=== PATIENT | female | born 1940 | race Caucasian/White ===

== ENCOUNTER → 2016-10-24 | Outpatient (CLI) | payer MEDICARE, OTHER ==
[~2016-10-24] MED LIST: ACETAMINOPHEN C PO; ACETAMINOPHN-12.5 ML; ALL DAY ALLERGY10 M3 PO; AMBIEN10 MG PO; ANTI-DIARRHEAL2 M1 PO; APAP325 M1 PO; BACTRIM DS TABL1 TA1 PO; CAPOZIDE PO; CARBIDOPA-LEVO1 TAB PO; CIPRO PO; COUMADIN PO; DESYREL50 MG PO; DETROL; DICLOFENAC; DICLOFENAC SODI50 MG PO; DITROPAN PO; DITROPAN5 MG PO; EXELON1 EACH TD; FERRO-TIME325 MG PO; FLEXERIL PO; FLEXERIL10 MG PO; HYDROCHLOROTH12.5 M1 PO; HYDROCHLOROTHIA25 MG PO; HYDROCODON-ACE1 EAC7 PO; HYDROCODON-ACE1 EAC9 PO; K-DUR10 MEQ PO; KEFLEX500 M1 PO; LASIX PO; LEVOTHROID50 MCG PO; LEVOTHYROXINE50 MCG PO; LISINOPRIL PO; LISINOPRIL10 MG PO; LITHIUM PO; LONOX PO; LOPRESSOR PO; LORTAB 7.5-5001 TAB PO; LORTAB 7.51 TAB PO; LOVENOX SUBQ; MAXZIDE 75/50 T1 TAB; MULTI-DAY PLUS1 EACH PO; NAPROXEN PO; OMEPRAZOLE40 M1 PO; ONDANSETRON HCL4 M1 PO; PATIENT'S PHARMACY; PERCOCET 5-3251 TAB PO; PERCOCET PO; POTASSIUM CHL PO; PRAMIPEXOLE DI0.5 MG PO; PREMARIN; PREMARIN PO; PRINIVIL10 MG PO; PYRIDIUM PO; QUINAM; REQUIP1 MG PO; SIMVASTATIN40 MG PO; SINEMET CR 21 TAB.SA PO; SINEMET CR1 TAB 25/1 PO; SINEMET-25/1001 TAB PO; SULFATRIM 800-120 ML PO; SYNTHROID PO; SYNTHROID0.05 MG PO; SYNTHROID0.1 MG PO; TAGAMET PO; TOPROL XL; TYLENOL #3 PO; VESICARE5 MG PO; ZOLOFT PO; ZOLOFT100 MG PO; ZOLPIDEM TARTRAT5 MG PO; ZYRTEC10 M1 PO; ZYRTEC10 M2 PO
--- NOTE | ~2016-10-24 | US24 ---
[facility] A Service of [facility] RADIOLOGY TEXT RESULTS PATIENT: MAHIN MO LOCATION: [facility] : 40 UNIT #: [id number] AGE: [address]: Ben Suggs MD SEX: F ORDER DR: [id number] [facility] [address] [place], [place] [address] [id number] O MR#: [id number] Acc #: [id number] NAME: MAHIN MO : 1940 SEX: F STUDY DATE/TIME: 10/24/2016 15:31 UNIT: CGUS ROOM: STUDY DESCRIPTION: US Breast Unilateral Attending Physician: Ben Suggs M.D. Ordering Physician: Ben Suggs M.D. Primary Care Physician: Ben Suggs M.D. MEDICAL IMAGING REPORT This report is preliminary unless electronic signature is present EXAM Right breast ultrasound, 10/24/2016 INDICATION Followup complex cystic area right breast at 8 o'clock. Comparison study is 05/31/2016. FINDINGS Ultrasound of the 8 o'clock region 13 cm from the nipple again shows a cluster of small cysts measuring about 7 mm in total. This corresponds to the nodule inches nipple again shows a cluster of small cysts measuring about 7 mm in total. This corresponds with the nodule seen on mammography. IMPRESSION No change in cluster of cysts corresponding with the mammographic nodule. I think this is a benign finding and I would recommend screening mammogram in May 2017 of both breasts. BIRADS: 2 Benign finding. Dictated by... Sumit Dougherty M.D. THIS IS AN ELECTRONICALLY VERIFIED REPORT Sumit Dougherty M.D. at 10/25/2016 7:13 AM JAMMIE/ravi TD: 10/25/2016 03:37 JOB #: [id number] [facility] A Service of [facility] RADIOLOGY TEXT RESULTS PATIENT: MAHIN MO LOCATION: [facility] : 40 UNIT #: [id number] AGE: [address]: Ben Suggs MD SEX: F ORDER DR: MEDICAL IMAGING REPORT COPY
== END | disposition home or self-care (01) ==
LOC: CGUS 15:11
DX: N60.11 Diffuse cystic mastopathy of right breast (principal)
CPT/HCPCS: 76641